=== PATIENT | female | born 1955 | race Caucasian/White ===

== ENCOUNTER 2024-05-04 20:24 | Emergency (ER) | payer MEDICARE, OTHER, SELFPAY ==
[2024-05-04 20:37] VITALS: BMI 27.9
[2024-05-04 20:38] VITALS: BP 113/77
[2024-05-04 20:52] LABS: % Basophils 0.7 % (0-2); % Eosinophils 2.5 % (0-6); % Immature Granulocytes 0.4 % (0-0.5); % Lymphocytes 33.5 % (20.5-51.1); % Monocytes 10.2 % (1.7-9.3); % Neutrophils 52.7 % (42.2-75.2); Absolute Eosinophils 0.1 10^3/uL (0-0.7); Absolute Lymphocytes 1.9 10^3/uL (1.2-3.4); Absolute Monocytes 0.6 10^3/uL (0.1-0.6); Hematocrit 35.2 % (37.0-47.0); Hemoglobin 12.7 g/dL (12.0-16.0); Mean Corp Hgb Conc. 36.1 g/dL (33.0-37.0); Mean Corpuscular Hgb 31.1 pg (27.0-31.0); Mean Corpuscular Volume 86.3 fL (81.0-99.0); Mean Platelet Volume 8.2 fL (7.4-10.4); Nucleated Red Blood Cells % 0 %; Platelet Count 251 10^3/uL (130-400); Red Blood Cell Count 4.08 10^6/uL (4.20-5.40); Red Cell Dist. Width 12.2 % (11.5-14.5); White Blood Cell Count 5.7 10^3/uL (4.8-10.8)
[2024-05-04 21:16] LABS: Troponin I < 0.012 ng/ml
[2024-05-04 21:29] LABS: ALT (SGPT) 13 U/L (0-35); AST (SGOT) 18 U/L (14-36); Albumin 3.4 g/dl (3.5-5.0); Alkaline Phosphatase 42 U/L (38-126); Blood Urea Nitrogen 19 mg/dl (7-17); Calcium 8.6 mg/dl (8.4-10.2); Carbon Dioxide 22 mmol/L (22-30); Chloride 105 mmol/L (98-107); Estimated Creatinine Clearance 83 ml/min; Glucose 83 mg/dl (70-99); Potassium 3.5 mmol/L (3.5-5.1); Sodium 133 mmol/L (135-145); Total Bilirubin 0.5 mg/dl (0.2-1.3); eGFR > 60.00
--- NOTE | 2024-05-04 22:47 | ED.GENMED ---
History of Present Illness
<Nikole Castillo MD - Last Filed: 05/04/24 22:48>
General
Chief Complaint: Fainting/Passed Out
Time Seen by Provider: 05/04/24 22:04
<Farhat Gould PA-C - Last Filed: 05/04/24 23:29>
General
Source: patient
Exam Limitations: none
History of Present Illness
History of Present Illness:
68-year-old female presents via EMS from a restaurant where she had a syncopal episode. She was sitting at the table after eating steak meal and a glass of wine. She started to feel lightheaded and dizzy and hot and she passed out. She found her
son laying on the floor talking to other people. There was no incontinence. Did not bite her tongue. There is no preceding chest pain. Currently she states she feels he has a headache. No other complaints at this time.
Phy Exam
<Farhat Gould PA-C - Last Filed: 05/04/24 23:29>
Physical Exam
Physical Exam:
General: Well-appearing female no acute respiratory distress
HEENT: Normocephalic atraumatic heart: Regular rate and rhythm no murmurs
Lungs: Clear no wheeze or rales neurologic exam: Alert and oriented x 3 no facial asymmetry or slurred speech
Extremities: No cyanosis or edema. No calf tenderness
Course
<Nikole Castillo MD - Last Filed: 05/04/24 22:48>
Orders/Labs/Results
Orders:
Orders
05/04/24 20:46
Electrocardiogram (*1) Urgent
Reason for Study: Chest Pain
EKG- Treatment ONCE
05/04/24 20:47
Complete Blood Count/With Diff Routine
Comprehensive Metabolic Panel Urgent
Troponin I Urgent
05/04/24 22:30
Cardiac Monitoring- Treatment ONCE
Orthostatic VS- Treatment ONCE
05/04/24 22:47
Meclizine [Antivert] 25 mg PO NOW STA
Abnormal Lab Results
05/04/24
20:47
RBC 4.08 L 10^6/uL
(4.20-5.40)
Hct 35.2 L %
(37.0-47.0)
MCH 31.1 H pg
(27.0-31.0)
Monocytes % 10.2 H %
(1.7-9.3)
Sodium 133 L mmol/L
(135-145)
BUN 19 H mg/dl
(7-17)
Total Protein 6.0 L g/dl
(6.3-8.2)
Albumin 3.4 L g/dl
(3.5-5.0)
05/04/24 20:47
05/04/24 20:47
Vital Signs
Initial and Last Documented VS:
Initial Vital Signs
Temp Pulse Resp BP Pulse Ox
98.0 F 63 18 113/77 99
05/04/24 20:38 05/04/24 20:38 05/04/24 20:38 05/04/24 20:38 05/04/24 20:38
Last Documented Vital Signs
Temp Pulse Resp BP Pulse Ox
98.0 F 63 18 113/77 99
05/04/24 20:38 05/04/24 20:38 05/04/24 20:38 05/04/24 20:38 05/04/24 20:38
Millicentlt;Farhat Gould PA-C - Last Filed: 05/04/24 23:29>
Orders/Labs/Results
Orders:
Orders
05/04/24 20:46
Electrocardiogram (*1) Urgent
Reason for Study: Chest Pain
EKG- Treatment ONCE
05/04/24 20:47
Complete Blood Count/With Diff Routine
Comprehensive Metabolic Panel Urgent
Troponin I Urgent
05/04/24 22:30
Cardiac Monitoring- Treatment ONCE
Orthostatic VS- Treatment ONCE
05/04/24 22:47
Meclizine [Antivert] 25 mg PO NOW STA
Abnormal Lab Results
05/04/24
20:47
RBC 4.08 L 10^6/uL
(4.20-5.40)
Hct 35.2 L %
(37.0-47.0)
MCH 31.1 H pg
(27.0-31.0)
Monocytes % 10.2 H %
(1.7-9.3)
Sodium 133 L mmol/L
(135-145)
BUN 19 H mg/dl
(7-17)
Total Protein 6.0 L g/dl
(6.3-8.2)
Albumin 3.4 L g/dl
(3.5-5.0)
05/04/24 20:47
05/04/24 20:47
Vital Signs
Initial and Last Documented VS:
Initial Vital Signs
Temp Pulse Resp BP Pulse Ox
98.0 F 63 18 113/77 99
05/04/24 20:38 05/04/24 20:38 05/04/24 20:38 05/04/24 20:38 05/04/24 20:38
Last Documented Vital Signs
Temp Pulse Resp BP Pulse Ox
98.0 F 63 18 113/77 99
05/04/24 20:38 05/04/24 20:38 05/04/24 20:38 05/04/24 20:38 05/04/24 20:38
<Farhat Gould PA-C - Last Filed: 05/04/24 23:29>
MDM/Problems Addressed
Differential Diagnosis Includes:
Syncope. Consider vasovagal versus arrhythmia versus anemia versus type factorial
Patient has normal sinus rhythm on EKG. Will place on monitor and check orthostatic vital signs. She is alert she is ambulatory. There is preceding symptoms this would suggest more of a syncopal or vasovagal event versus arrhythmia.
No arrhythmias noted on the monitor here. She was given a liter of fluid and is feeling better. Stable for discharge.
<Farhat Gould PA-C - Last Filed: 05/04/24 23:29>
*Critical Care Note
Total Time (30-74mins, 75-104mins- exclusive of procedures): Not Applicable
ED Attending Note
<Nikole Castillo MD - Last Filed: 05/04/24 22:48>
ED Attending Note
Patient seen and examined by attending physician: Yes
I performed the substantive portion of visit, reviewed & personally made and approve the management plan that is documented in note by myself or BASSAM.: Yes
ED Attending Note:
Patient appears well and comfortable. She is smiling and conversational. EKG shows a normal sinus rhythm. Heart sounds regular lungs are clear. Neurological exam is nonfocal. Will continue to keep her on monitor worker to rule out any cardiac
arrhythmias.
-
Portions of this chart may have been created with voice recognition software.� Occasional wrong word or��sound alike� substitutions may have occurred due to the inherent limitations of voice recognition software.
Discharge Plan
Departure
Patient Disposition: Home (Routine Discharge)
Date of Disposition: 05/04/24
Time of Disposition: 23:28
Patient with high blood pressure during this ER visit?: No
Discharge Problem:
Syncope
Instructions: Syncope (Fainting) (DC)
Referrals:
Henrik Burrell MD [Family Provider] -
Activity Restrictions/Additional Instructions:
Stay hydrated. Rest. Return if worse. Follow-up with your family doctor.
Interventions
Interventions:
*Risk Screen - Suicide Last Done: 05/04/24 20:38
*General Assessment Last Done: 05/04/24 20:38
*Neglect/Abuse Screening Last Done: 05/04/24 20:38
ED- Fall Risk Assessment Last Done: 05/04/24 21:06
ED- Cardiac Assessment Last Done: 05/04/24 21:06
ED- Neurological Assessment Last Done: 05/04/24 21:06
Discharge Date and Time
Print Language: GREEK
[2024-05-04 22:52] VITALS: BP 114/75; BP 123/93; BP 128/75; PULSE 64; PULSE 65; PULSE 66
[2024-05-04] MEDS: ANTIVERT 25 MG PO (22:52)
== END 2024-05-04 23:46 | disposition home or self-care (01) ==
LOC: EMR 20:24
PROVIDERS: EMERGENCY PHYSICIAN Emergency Medicine; FAMILY PHYSICIAN Family Medicine
DX: R55 Syncope and collapse (principal)
CPT/HCPCS: 99283; 80053; 84484; 85025; 93005

== ENCOUNTER → 2025-01-30 13:43 | Outpatient (REF) | payer MEDICARE, OTHER, SELFPAY | LOC: WDC 13:43 | PROVIDERS: ATTENDING PHYSICIAN Family Medicine | DX: Z12.31 Encounter for screening mammogram for malignant neoplasm of breast (principal) | CPT/HCPCS: 77063; 77067 ==

== ENCOUNTER → 2025-02-11 10:56 | Outpatient (REF) | payer MEDICARE, OTHER, SELFPAY | LOC: DHSLP 10:56 | PROVIDERS: ATTENDING PHYSICIAN Internal Medicine Critical Care Medicine; FAMILY PHYSICIAN Family Medicine | DX: G47.33 Obstructive sleep apnea (adult) (pediatric) (principal) | CPT/HCPCS: 95806 ==

== ENCOUNTER → 2025-04-10 09:58 | Outpatient (REF) | payer MEDICARE, OTHER, SELFPAY | LOC: WDC 09:58 | PROVIDERS: ATTENDING PHYSICIAN Family Medicine | DX: R92.8 Other abnormal and inconclusive findings on diagnostic imaging of breast (principal) | CPT/HCPCS: 76642 ==